=== PATIENT | male | born 1965 | race Caucasian/White ===

== ENCOUNTER 2019-05-03 10:11 | Outpatient (CLI) | payer OTHER, SELFPAY ==
--- NOTE | ~2019-05-03 | CT_ITS ---
EXAMINATION: CT lung screening EXAM DATE: 05/03/2019 10:37 INDICATION: Personal history of nicotine dependence. TECHNIQUE: Spiral low dose CT of the chest without contrast. Axial, coronal and sagittal images were reviewed. The dose-length product (DLP) for this examination was 78.19 mGy-cm. The exposure was ta ilored according to patient size (auto mA exposure control), and iterative reconstruction (ASIR) was used as additional dose reduction technique. There is no prior study for comparison. FINDINGS: There is moderate emphysema and hyperinflation. Apical bullous disease. Tracheobronchial tree is patent. There is no mediastinal, hilar or axillary lymphadenopathy. There are no pleural or pericardial effusions. There is no pneumothorax. Narrow cardiac silhouette from hyperinflated lungs. There is mild coronary arterial calcification, arterial sclerosis. There is a 3.6 cm cyst in the superior pole of the right kidney. The bones are unremarkable. IMPRESSION: Lung-RADS category 1, negative (<1%chance of malignancy); recommend continued LDCT screen ing in 1 year. Reviewed, dictated and finalized at location B. [employer] OPERATOR IMPRESSION: Lung-RADS category 1, negative (<1%chance of malignancy); recommend continued LDCT screening in 1 year.
== END 2019-05-03 10:12 | disposition home or self-care (01) ==
LOC: CHSIMG 10:14
PROVIDERS: PCP Family Medicine; Visit Provider Family Medicine
DX: Z12.2 Encounter for screening for malignant neoplasm of respiratory organs (principal); Z87.891 Personal history of nicotine dependence
CPT/HCPCS: G0297

== ENCOUNTER 2020-07-06 09:19 | Outpatient (CLI) | payer OTHER, SELFPAY | END 2020-07-06 09:20 | disposition home or self-care (01) | LOC: CHSCOVIDVC 09:19 | PROVIDERS: PCP Family Medicine | DX: Z23 Encounter for immunization (principal) | CPT/HCPCS: 0011A; 91301 ==

== ENCOUNTER 2020-08-03 09:04 | Outpatient (CLI) | payer OTHER, SELFPAY | END 2020-08-03 09:05 | disposition home or self-care (01) | LOC: CHSCOVIDVC 09:05 | PROVIDERS: PCP Family Medicine | DX: Z23 Encounter for immunization (principal) | CPT/HCPCS: 0012A; 91301 ==